=== PATIENT | male | born 1960 | race Caucasian/White ===

== ENCOUNTER 2018-07-13 15:17 | Emergency (ER) | payer OTHER ==
[~2018-07-13] VITALS: Ht 170.2 cm; Wt 63.5 kg
--- NOTE | 2018-07-13 15:29 | Emergency Room Report ---
History of Present Illness General Chief Complaint: Behavioral Complaint Source: Patient Present Illness HPI Patient 58-year-old male brought in by EMS for increased agitation. Patient reports having racing thoughts. He states that he been off of his psychiatric medications. He denies any suicidal thoughts. He reports feeling more agitated than usual. He denies any alcohol or drug use.The patient states he is previously taken Seroquel. Allergies: Coded Allergies: No Known Allergies (Unverified , 07/13/18) Patient History Past Medical History: see triage record Reviewed Nursing Documentation: PMH: Agreed; PSxH: Agreed Nursing Documentation-PMH Past Medical History: No History, Except For History Of Psychiatric Problem: Yes Review of Systems All Other Systems: limited - by poor historian Physical Exam Vital Signs Date Time Temp Pulse Resp B/P (MAP) Pulse Ox O2 Delivery O2 Flow Rate FiO2 07/13/18 15:08 97.5 101 16 125/68 98 Room Air Sp02 EP Interpretation: reviewed, normal General Appearance: alert/responsive, no apparent distress, GCS 15, non-toxic Head: atraumatic Eyes: PERRL, lids + conjunctiva normal ENT: hearing intact, no angioedema Neck: supple/symm/no masses, no meningismus Respiratory: effort normal, no wheezing, chest symmetrical Cardiovascular: regular rate, rhythm, no edema Cardiovascular #2: 2+ carotid (R), 2+ carotid (L), 2+ dorsalis pedis (R), 2+ dorsalis pedis (L) Gastrointestinal: non-tender, no mass, non-distended, no rebound/guarding, normal bowel sounds Musculoskeletal: gait & station normal, strength & tone normal, normal ROM, non -tender Neurologic: oriented x3, sensory intact, other - speech impediment Skin: no rash, well hydrated Lymphatic: normal inspection Medical Decision Making Diagnostic Impression: Primary Impression: Psychosis ER Course Patient presented for psychosis. Differential diagnoses include substance abuse, psychosis, bipolar disorder, depression, malingering Patient has a benign exam and does not appear to require any further imaging or laboratory testing at this time. The patient states that he is not suicidal and not actively hallucinating. The patient was given Haldol with improvement in symptoms. Patient was able to sleep while in the emergency department. The patient stated he felt better. The patient was given the first referrals for outpatient mental health. Last Vital Signs Date Time Temp Pulse Resp B/P (MAP) Pulse Ox O2 Delivery O2 Flow Rate FiO2 07/13/18 15:08 97.5 101 16 125/68 98 Room Air Status: improved Disposition: HOME, SELF-CARE Condition: Stable Scripts Quetiapine Fumarate (SEROQUEL) 50 Mg Tablet 50 MG ORAL QHS, #15 TAB 0 Refills Prov: Alberto Gongora MD 07/13/18 Alberto Gongora MD Jul 13, 2018 15:29
[2018-07-13] MEDS ORDERED: Haloperidol 5mg/ml Inj IM ONE (15:30)
[2018-07-13 15:35] VITALS: BP 127/67
[2018-07-13 18:10] VITALS: BP 125/64
[2018-07-13] MEDS ORDERED: SEROQUEL50 MG ORAL (18:26)
[2018-07-13 18:39] VITALS: BP 125/64
== END 2018-07-13 18:41 | disposition home or self-care (01) ==
LOC: EDBD 15:17 → EMR 16:35
DX: F29 Unspecified psychosis not due to a substance or known physiological condition (principal)
CPT/HCPCS: 96372; 99283; J1630